=== PATIENT | female | born 1985 | race Two or more races ===

== ENCOUNTER 2020-02-02 07:35 | Day surgery (SDC) | payer OTHER ==
[2020-01-27 09:27] LABS: Basophils # (auto) 0 10 ^3/uL (0-0.2); Basophils % (auto) 0.5 % (0.0-2.0); Eosinophils # (auto) 0.1 10 ^3/uL (0-0.8); Eosinophils % (auto) 1.4 % (0.0-7.0); Hematocrit 45.8 % (36.0-46.0); Hemoglobin 15.5 g/dL (12.2-16.2); Lymphocytes # (auto) 1.9 10 ^3/uL (0.4-5.4); Lymphocytes % (auto) 29.1 % (10.0-50.0); Mean Corpuscular Hemoglobin 32.5 pg (28.0-32.0); Mean Corpuscular Hgb Conc. 33.9 g/dL (32.0-36.0); Mean Corpuscular Volume 96.1 fL (80.0-100.0); Monocytes # (auto) 0.3 10 ^3/uL (0-1.3); Monocytes % (auto) 4.4 % (0.0-12.0); Neutrophils # (auto) 4.2 10 ^3/uL (1.6-8.6); Neutrophils % (auto) 64.6 % (37.0-80.0); Nucleated Red Blood Cells % 0.1 %; Platelet Count (auto) 304 10^3/uL (140-450); Red Blood Cells 4.77 10^6/uL (4.0-5.20); Red Cell Distribution Width 12.9 % (11.8-14.3); White Blood Cell 6.5 10^3/uL (4.4-10.8)
[2020-01-27 09:35] LABS: Urine Bacteria FEW /hpf (None Seen); Urine Blood 3+ /uL (Negative); Urine Mucus FEW (None Seen); Urine WBC 8 /hpf (0 - 5)
[2020-01-27 09:59] LABS: Albumin 3.7 g/dL (3.4-5.0); BUN/Creatinine Ratio 14.8; Calcium 8.7 mg/dL (8.5-10.1); Potassium 3.8 mmol/L (3.5-5.1)
[2020-01-27 10:01] LABS: Bilirubin, Total 0.4 mg/dL (0.2-1.0); Total Protein 7.9 g/dL (6.4-8.2)
[2020-01-27 10:38] LABS: INR 0.97 (0.9-1.15); Partial Thromboplastin Time 27.4 sec (23.0-31.2)
[~2020-02-02] VITALS: Ht 157.5 cm; Wt 76.2 kg
[~2020-02-02 07:35] MED LIST: LISI40TA11 PO
[2020-02-02] MEDS ORDERED: ROPIVACAINE 0.5% (5MG/ML) 20ML AMPULE IJ ONE (09:28)
[2020-02-02] MEDS ORDERED: ceFAZolin 1GM/50ML 50 ML IV ONE (09:53)
[2020-02-02] MEDS ORDERED: MIDAZOLAM HCL 1MG/1ML-2 ML VIAL ONE (10:01)
[2020-02-02] MEDS ORDERED: fentaNYL CITRATE 100 MCG/2 ML VL ONE (10:01)
[2020-02-02] MEDS ORDERED: MEPERIDINE HCL (25 MG/ML) 1ML VIAL ONE (10:01)
[2020-02-02] MEDS ORDERED: HYDROmorphone HCL 2 MG/ML VL IV PRN (10:15)
[2020-02-02] MEDS ORDERED: KETOROLAC TROMETH 30 MG/ML 1ML VIAL IV ONE (10:15)
[2020-02-02] MEDS ORDERED: ONDANSETRON HCL 4 MG/2 ML VIAL IV PRN (10:15)
[2020-02-02] MEDS ORDERED: MORPHINE SULFATE 4 MG/ML SYR/VIAL IV PRN (10:15)
[2020-02-02] MEDS ORDERED: LABETALOL HCL 5 MG/ML 4ML SYRINGE IV PRN (10:15)
[2020-02-02] MEDS ORDERED: ePHEDrine SULFATE 50 MG/ML AMP IV PRN (10:15)
[2020-02-02] MEDS ORDERED: MIDAZOLAM HCL 1MG/1ML-2 ML VIAL IV PRN (10:15)
[2020-02-02] MEDS ORDERED: DexAMETHasone SOD PHOS 10MG/1ML VIAL INJ ONE (10:31)
[2020-02-02] MEDS ORDERED: PROPOFOL 10 MG/ML 20 ML IV ONE (10:34)
[2020-02-02 11:16] VITALS: BP 158/96
== END 2020-02-02 11:30 | disposition home or self-care (01) ==
LOC: SUR 07:35
PROVIDERS: ATTEND Podiatrist Foot & Ankle Surgery
DX: M20.11 Hallux valgus (acquired), right foot (principal); M21.611 Bunion of right foot; I10 Essential (primary) hypertension; E07.9 Disorder of thyroid, unspecified; Z90.49 Acquired absence of other specified parts of digestive tract; Z90.721 Acquired absence of ovaries, unilateral; Z98.890 Other specified postprocedural states; Z88.8 Allergy status to other drugs, medicaments and biological substances; Z11.59 Encounter for screening for other viral diseases
CPT/HCPCS: 28296; 36415; 73620; 80053; 81001; 84702; 85025; 85610; 85730; C1713; C1769; J0690; J1100; J2175; J2250; J2704; J2795; J3010; U0003